=== PATIENT | female | born 1995 | race Caucasian/White ===

== ENCOUNTER → 2017-09-14 | Outpatient (CLI) | payer MEDICAID, OTHER | LOC: CIMAGING 11:25 | PROVIDERS: ATTEND Family Medicine Sports Medicine | DX: M25.571 Pain in right ankle and joints of right foot (principal); G89.29 Other chronic pain; M89.9 Disorder of bone, unspecified; M76.71 Peroneal tendinitis, right leg; R93.6 Abnormal findings on diagnostic imaging of limbs | CPT/HCPCS: 73700-PO ==